=== PATIENT | female | born 1950 | race African-American/Black ===

== ENCOUNTER 2021-12-03 16:03 | Day surgery (SDC) | payer OTHER ==
[2021-11-29 16:34] VITALS: BMI 28.1
[2021-12-03] MEDS: LACTATED RINGERS SOLUTION 1,000 ML IV SCH (14:30)
[2021-12-03] MEDS: ACETAMINOPHEN 500 MG TABLET (FP) PO SCH ×2 (15:09→21:41)
[~2021-12-03 16:03] MED LIST: ACETAMINOPHEN 500 MG TABLET (FP) ONE; DEXAMETHASONE SOD PHOSPHATE 10 MG/1 ML VIAL ONE; KETOROLAC TROMETHAMINE 30 MG/1 ML VIAL ONE; LIDOCAINE HCL 2% JELLY (5 ML/TUBE) ONE; MIDAZOLAM HCL 2 MG/2 ML SINGLE DOSE VIAL ONE; ONDANSETRON 4 MG/2 ML VIAL IVPUSH PRN; ONDANSETRON 4 MG/2 ML VIAL ONE; PROPOFOL 20 ML ONE; ROPIVACAINE HCL/PF 100 MG/20 ML VIAL ONE; VANCOMYCIN 1,000 MG VIAL (RESTRICTED TO ID ONLY) ONE; ZOLPIDEM TARTRATE 5 MG TABLET PO PRN; ceFAZolin SODIUM 1 GM VIAL ONE; oxyCODONE HCL 5 MG TABLET PO PRN; valACYclovir HCL 500 MG TABLET (FP) PO PRN
[2021-12-03] MEDS ORDERED: ceFAZolin SODIUM 1 GM VIAL ONE (19:58)
[2021-12-03] MEDS ORDERED: DEXTROSE 5%-WATER - 50 ML IVPB ONE (19:58)
[2021-12-03] MEDS: CEFAZOLIN 2 GM in DEXTROSE 5%-WATER - 50 ML IVPB SCH (20:04)
[2021-12-03] MEDS ORDERED: GABAPENTIN 300 MG CAPSULE PO SCH (22:00)
[2021-12-03] MEDS ORDERED: PATIENT'S OWN MEDICATION (NON-FORMULARY) (Cal/D3/Mag11/Zinc/Cop/Mang/Bor [Caltrate 600+D P PO SCH (22:00)
[2021-12-03] MEDS ORDERED: PATIENT'S OWN MEDICATION (NON-FORMULARY) (Zolpidem Tartrate [Ambien] 10 MG Tablet) PO SCH (22:00)
[2021-12-03] MEDS: APIXABAN 5 MG TABLET PO SCH (22:23)
[2021-12-03] MEDS ORDERED: ZOLPIDEM TARTRATE 5 MG TABLET PO ONE ×2 (22:35→22:37)
[2021-12-04] MEDS ORDERED: ceFAZolin SODIUM 1 GM VIAL ONE ×2 (02:03→07:58)
[2021-12-04] MEDS ORDERED: DEXTROSE 5%-WATER - 50 ML IVPB ONE ×2 (02:03→07:58)
[2021-12-04] MEDS: CEFAZOLIN 2 GM in DEXTROSE 5%-WATER - 50 ML IVPB SCH ×2 (02:10→08:48)
[2021-12-04] MEDS: ACETAMINOPHEN 500 MG TABLET (FP) PO SCH ×3 (04:04→15:08)
[2021-12-04] MEDS ORDERED: APIXABAN 5 MG TABLET PO SCH (08:00)
[2021-12-04 08:20] LABS: CALCIUM 8.2 mg/dl (8.5-10); CREATININE 0.8 mg/dl (0.55-1.3)
[2021-12-04 08:21] LABS: HEMATOCRIT 28.6 % (32.4-45.2); HEMOGLOBIN 9.7 G/dL (10.7-15.3); MCH 28.9 pg (25.7-33.7); MCHC 34.1 g/dl (32.0-36.0); MEAN CELL VOLUME 84.9 fl (80-96); MEAN PLT VOLUME 9.7 fl (7.5-11.1); RBC 3.37 10^6/uL (3.60-5.2); RDW 18.3 % (11.6-15.6); WHITE BLOOD COUNT 7.3 10^3/uL (4.0-10.8)
[2021-12-04] MEDS: APIXABAN 5 MG TABLET PO SCH (09:17)
[2021-12-04 09:34] VITALS: TEMP 97.8
[2021-12-04] MEDS: LACTATED RINGERS SOLUTION 1,000 ML IV SCH (09:34)
[2021-12-04] MEDS ORDERED: PATIENT'S OWN MEDICATION (NON-FORMULARY) (Omeprazole 20 MG Capsule.Dr) PO SCH (10:00)
[2021-12-04] MEDS ORDERED: PANTOPRAZOLE 20 MG TABLET PO SCH (10:00)
[2021-12-04] MEDS ORDERED: MULTIVITAMINS (DAILY MVI) TABLET (FP) PO SCH (10:00)
[2021-12-04] MEDS ORDERED: PATIENT'S OWN MEDICATION (NON-FORMULARY) (Multivitamin [One-Daily Multi-Vitamin] 1 EACH Ta PO SCH (10:00)
[2021-12-04] MEDS ORDERED: ATENOLOL 50 MG TABLET (FP) PO SCH (10:00)
[2021-12-04] MEDS ORDERED: PATIENT'S OWN MEDICATION (NON-FORMULARY) (Atenolol [Tenormin -] 100 MG Tablet) PO SCH (10:00)
[2021-12-04 16:00] VITALS: BP 124/55; PULSE 62
== END 2021-12-04 16:59 | disposition home or self-care (01) ==
LOC: FM/S 16:03 → FASUSAT 16:03
PROVIDERS: ATTEND Orthopaedic Surgery Orthopaedic Surgery of the Spine
PROC: 0KBB0ZX Excision of Left Lower Arm and Wrist Muscle, Open Approach, Diagnostic (ICD-10-PCS; 2021-12-03)
PROC: 0PSJ04Z Reposition Left Radius with Internal Fixation Device, Open Approach (ICD-10-PCS; principal; 2021-12-03 12:23)
DX: M84.434A Pathological fracture, left radius, initial encounter for fracture (principal); D21.12 Benign neoplasm of connective and other soft tissue of left upper limb, including shoulder; C90.00 Multiple myeloma not having achieved remission; I10 Essential (primary) hypertension; Z86.711 Personal history of pulmonary embolism; Z92.21 Personal history of antineoplastic chemotherapy
CPT/HCPCS: 25066; 25515; C1713; 36415; 73090-TC-LT-FY; 80048; 85027; 87070; 87075; 87102; 87116; 87205; 87206; 87210; 88305-TC; 94760; J1100